=== PATIENT | male | born 1965 | race Caucasian/White ===

== ENCOUNTER 2017-04-11 16:12 | Emergency (ER) | payer OTHER ==
[~2017-04-11] VITALS: Ht 193 cm; Wt 95.3 kg
[2017-04-11] MEDS ORDERED: ANAFRANIL25 MG PO (16:26)
[2017-04-11] MEDS ORDERED: ABILIFY20 MG PO (16:27)
[2017-04-11] MEDS ORDERED: LISINOPRIL20 MG PO (16:28)
[2017-04-11] MEDS ORDERED: CLONAZEPAM2 MG PO (16:28)
[2017-04-11] MEDS ORDERED: FLEXERIL PO (16:28)
[2017-04-11] MEDS ORDERED: HYDROCODONE-AP1 EAC6 PO (17:08)
[2017-04-11 17:37] VITALS: BP 110/74
== END 2017-04-11 17:40 | disposition home or self-care (01) ==
LOC: ER 16:12
DX: M25.562 Pain in left knee (principal); F10.99 Alcohol use, unspecified with unspecified alcohol-induced disorder; Z88.2 Allergy status to sulfonamides; Z88.1 Allergy status to other antibiotic agents